=== PATIENT | female | born 1990 | race Caucasian/White ===

== ENCOUNTER 2018-01-23 08:50 | Emergency (ER) | payer OTHER ==
[~2018-01-23] VITALS: Ht 162.6 cm; Wt 88.0 kg
[~2018-01-23 08:50] MED LIST: ACET325 PO; ALBU90OI INH; ASPI325 PO; Bactrim Ds Tab1 EACH PO; CEPH500 PO; CLIN300 PO; COLD AND FLU; CYCL10 PO; Cleocin HCl150 MG PO; DOCU100 PO; DOXY100 PO; Diflucan150 MG PO; HYDACE5 PO; HYDACE5325 PO; IBUP400 PO; IBUP800 PO; MULVITMINE PO; Naprosyn500 MG PO; Norco 5-325 Ta1 EACH PO; OSEL75CA PO; PROCODE120 PO; Percocet 5-3251 EACH PO; SERT50 PO; Tylenol325 MG PO; Ultram50 MG PO; Veetids 500500 MG PO; Verotin-Gr Cap1 EACH PO; Zofran8 MG PO; subutex
[2018-01-23] MEDS ORDERED: PRENATA CHEWAB1 EACH PO (10:54)
== END 2018-01-23 12:41 | disposition home or self-care (01) ==
LOC: ER 08:50
DX: O26.892 Other specified pregnancy related conditions, second trimester (principal); R10.9 Unspecified abdominal pain; O99.332 Smoking (tobacco) complicating pregnancy, second trimester; F17.210 Nicotine dependence, cigarettes, uncomplicated; Z88.1 Allergy status to other antibiotic agents; Z88.8 Allergy status to other drugs, medicaments and biological substances; Z88.5 Allergy status to narcotic agent; Z79.899 Other long term (current) drug therapy; Z3A.27 27 weeks gestation of pregnancy
CPT/HCPCS: 76805; 99284-25

== ENCOUNTER → 2019-02-15 | Outpatient (CLI) | payer OTHER ==
[~2019-02-15] MED LIST changes: +PRENATA CHEWAB1 EACH PO
[2019-02-15 17:08] LABS: Source, Urine Clean Catch
[2019-02-15 18:22] LABS: Blood, Urine 1+ (Neg); Glucose Qualitative, Urine Neg (Neg); Ketones, Urine 1+ (Neg); Leukocyte Esterase, Urine 2+ (Neg); Nitrite, Urine Neg (Neg); Protein, Urine 2+ (Neg); Urobilinogen, Urine 2+ (Normal)
[2019-02-15 18:29] LABS: Bilirubin, Urine 1+ (Neg)
[2019-02-15 18:38] LABS: Appearance, Urine Turbid (Clear); Color, Urine Amber (P-Yellow)
[2019-02-15 18:40] LABS: Amorphous Mod (0-Heavy); Bacteria Many /hpf; Calcium Oxalate Crystals Many /hpf; Red Blood Cells, Urine 0-2 /hpf (0-2); Squamous Epithelial Cells Many /hpf (Few)
[2019-02-15 18:43] LABS: U Amphetamine Screen DETECTED; U Barbituate Screen Not Detected; U Benzodiazapine Screen Not Detected; U Buprenorphine Screen DETECTED; U Cocaine Screen Not Detected; U Methadone Screen Not Detected; U Methamphetamine Screen DETECTED; U Opiates Screen Not Detected
[2019-02-15 18:44] LABS: U Cannabinoids Screen Not Detected; U Oxycodone Screen Not Detected; U Phencyclidine Screen Not Detected; U Propoxyphene Screen Not Detected
== END | disposition home or self-care (01) ==
LOC: LAB SHORT 12:44 → LAB 12:44
PROVIDERS: Obstetrics & Gynecology
DX: Z34.83 Encounter for supervision of other normal pregnancy, third trimester (principal); F11.21 Opioid dependence, in remission
CPT/HCPCS: 81001; 87086

== ENCOUNTER → 2019-02-22 | Outpatient (CLI) | payer OTHER ==
[2019-02-22 17:10] LABS: Source, Urine Clean Catch
[2019-02-22 18:37] LABS: Bilirubin, Urine Neg (Neg); Blood, Urine Neg (Neg); Glucose Qualitative, Urine Neg (Neg); Ketones, Urine Neg (Neg); Leukocyte Esterase, Urine 1+ (Neg); Nitrite, Urine Neg (Neg); Protein, Urine Neg (Neg); Urobilinogen, Urine 3+ (Normal)
[2019-02-22 18:46] LABS: Appearance, Urine Clear (Clear); Color, Urine Yellow (P-Yellow)
[2019-02-22 18:47] LABS: Bacteria Mod /hpf; Calcium Oxalate Crystals Mod /hpf; Red Blood Cells, Urine 0-2 /hpf (0-2); Squamous Epithelial Cells Few /hpf (Few)
[2019-02-23 09:37] LABS: T. vaginalis (DNA Probe) Negative (NEGATIVE)
[2019-02-23 09:38] LABS: Candida species (DNA Probe) Negative (NEGATIVE); G. vaginalis (DNA Probe) Negative (NEGATIVE)
[2019-02-25 04:07] LABS: CHLAMYDIA TRACHOMATIS, NAA Negative (Negative); NEISSERIA GONORRHOEAE, NAA Negative (Negative)
== END | disposition home or self-care (01) ==
LOC: LAB 15:27 → LAB SHORT 15:27
PROVIDERS: Advanced Practice Midwife
DX: O23.599 Infection of other part of genital tract in pregnancy, unspecified trimester (principal)
CPT/HCPCS: 81001; 87086; 87480; 87491; 87510; 87591; 87660; G0123

== ENCOUNTER 2019-06-25 09:34 | Emergency (ER) | payer OTHER ==
[~2019-06-25] VITALS: Ht 170.2 cm; Wt 90.7 kg
[2019-06-25] MEDS ORDERED: MIRT30 PO (10:09)
[2019-06-25] MEDS ORDERED: Ultram50 MG PO (10:32)
[2019-06-25] MEDS ORDERED: Veetids 500500 MG PO (10:32)
== END 2019-06-25 10:43 | disposition home or self-care (01) ==
LOC: ER 09:34
DX: K04.7 Periapical abscess without sinus (principal); Z88.1 Allergy status to other antibiotic agents; Z88.8 Allergy status to other drugs, medicaments and biological substances; F17.210 Nicotine dependence, cigarettes, uncomplicated
CPT/HCPCS: 99283

== ENCOUNTER 2019-11-22 05:46 | Emergency (ER) | payer OTHER ==
[~2019-11-22] VITALS: Ht 170.2 cm; Wt 90.7 kg
[~2019-11-22 05:46] MED LIST changes: +MIRT30 PO
== END 2019-11-22 07:10 | disposition home or self-care (01) ==
LOC: ER 05:46
DX: S81.012A Laceration without foreign body, left knee, initial encounter (principal); S80.01XA Contusion of right knee, initial encounter; F17.210 Nicotine dependence, cigarettes, uncomplicated; Z23 Encounter for immunization; Z88.1 Allergy status to other antibiotic agents; Z88.8 Allergy status to other drugs, medicaments and biological substances; V89.2XXA Person injured in unspecified motor-vehicle accident, traffic, initial encounter
CPT/HCPCS: 12002; 73562-LT; 73562-RT; 90471; 90714; 99284-25

== ENCOUNTER 2020-09-30 17:29 | Emergency (ER) | payer OTHER ==
[~2020-09-30] VITALS: Ht 170.2 cm; Wt 86.2 kg
[~2020-09-30 17:29] MED LIST changes: +HYDR1TAB94 PO
[2020-09-30 17:56] LABS: Hematocrit 34.4 % (33.0-51.0); Mean Corpuscular HGB 26.4 pg (26.0-34.0); Mean Corpuscular Volume 83 fL (80-100); Platelet Count 448 K/mm3 (150-400); RDW Coefficient Variation 15.3 % (11.7-14.2); RDW Standard Deviation 46.5 fL (35.1-46.3); Red Blood Cell Count 4.16 M/mm3 (3.80-5.20); White Blood Cell Count 12.82 K/mm3 (4.00-11.30)
[2020-09-30 18:18] LABS: Alanine Aminotransfer (ALT/SGP 124 U/L (12-78); Albumin, Blood 3.4 g/dL (3.4-5.0); Albumin/Globulin Ratio 0.8 (0.8-1.8); Alk Phos 106 U/L (50-136); Anion Gap 7 mmol/L (6-16); Aspartate Aminotrans (AST/SGOT 202 U/L (12-37); Beta HCG, Quantitative, Serum <1 mIU/mL (0-3); Bilirubin, Total 0.2 mg/dL (0.1-1.0); Blood Urea Nitrogen 13 mg/dL (8-24); Bun/Creatinine Ratio 13.3 (12.0-20.0); CO2, Blood 22 mmol/L (21-32); Calcium, Blood 8.8 mg/dL (8.5-10.1); Chloride, Blood 112 mmol/L (98-108); Creatinine, Blood 0.98 mg/dL (0.40-1.00); Ethanol (Alcohol), Blood, Med <3 mg/dL; Glomerular Filtration Rate >60 (60-); Glucose, Blood 126 mg/dL (70-99); Potassium, Blood 3.9 mmol/L (3.5-5.5); Sodium, Blood 141 mmol/L (136-145); Total Protein, Blood 7.4 g/dL (6.4-8.2)
[2020-09-30 18:27] LABS: BASOPHILS PERCENT MAN 0 % (0-2); EOSINOPHILS ABSOLUTE MAN 0.25 K/mm3 (0.00-0.68); EOSINOPHILS PERCENT MAN 2 % (0-6); LYMPHOCYTES ABSOLUTE MAN 4.74 K/mm3 (0.84-5.20); LYMPHOCYTES PERCENT MAN 37 % (21-46); MONOCYTES ABSOLUTE MAN 1.02 K/mm3 (0.16-1.47); MONOCYTES PERCENT MAN 8 % (4-13); NEUTROPHILS ABSOLUTE MAN 6.79 K/mm3 (1.96-9.15); SEG NEUTROPHILS PERCENT MAN 53 % (41-73); TOTAL CELLS COUNTED 100
[2020-09-30 18:29] LABS: International Normalized Ratio 0.98; Prothrombin Time Results 10.5 Sec (9.7-11.5)
[2020-09-30 19:46] LABS: Source, Urine Clean Catch
[2020-09-30 19:58] LABS: Appearance, Urine Cloudy (Clear); Bilirubin, Urine Neg (Neg); Blood, Urine 5+ (Neg); Color, Urine Amber (P-Yellow); Glucose Qualitative, Urine Neg (Neg); Ketones, Urine Neg (Neg); Leukocyte Esterase, Urine 2+ (Neg); Nitrite, Urine Pos (Neg); Protein, Urine 3+ (Neg); Urobilinogen, Urine NORM (Normal)
[2020-09-30 20:12] LABS: Bacteria Many /hpf; Red Blood Cells, Urine TNTC /hpf (0-2); Squamous Epithelial Cells Few /hpf (Few); White Blood Cells, Urine 50-100 /hpf (0-5)
[2020-09-30 20:58] LABS: U Amphetamine Screen DETECTED; U Barbituate Screen Not Detected; U Benzodiazapine Screen Not Detected; U Buprenorphine Screen Not Detected; U Cannabinoids Screen Not Detected; U Cocaine Screen Not Detected; U Methadone Screen Not Detected; U Methamphetamine Screen DETECTED; U Opiates Screen Not Detected; U Oxycodone Screen Not Detected; U Phencyclidine Screen Not Detected; U Propoxyphene Screen Not Detected
== END 2020-09-30 20:04 | disposition short-term general hospital (02) ==
LOC: ER 17:29
PROVIDERS: Emergency Medicine
DX: S02.2XXA Fracture of nasal bones, initial encounter for closed fracture (principal); S37.032A Laceration of left kidney, unspecified degree, initial encounter; S36.031A Moderate laceration of spleen, initial encounter; Z88.1 Allergy status to other antibiotic agents; Z88.5 Allergy status to narcotic agent; Z87.891 Personal history of nicotine dependence; Z88.6 Allergy status to analgesic agent; Z88.8 Allergy status to other drugs, medicaments and biological substances; V49.50XA Passenger injured in collision with unspecified motor vehicles in traffic accident, initial encounter; Y92.410 Unspecified street and highway as the place of occurrence of the external cause
CPT/HCPCS: 25605; 51702; 70450; 70486; 71045; 71260; 72125; 73090; 73100; 74177; 76000; 80053; 81001; 83690; 84702; 85025; 85610; 87077; 87086; 87186; 96361-59; 96374-59; 96376-59; 99285-25; G0480; J3010; J7030; Q9967

== ENCOUNTER 2020-11-20 08:30 | Emergency (ER) | payer OTHER ==
[~2020-11-20] VITALS: Ht 170.2 cm; Wt 77.1 kg
[2020-11-20] MEDS ORDERED: Bactrim Ds Tab1 EACH PO (10:14)
[2020-11-20] MEDS ORDERED: CEPH500 PO (10:14)
== END 2020-11-20 11:35 | disposition home or self-care (01) ==
LOC: ER 08:30
DX: T81.41XA Infection following a procedure, superficial incisional surgical site, initial encounter (principal); L08.9 Local infection of the skin and subcutaneous tissue, unspecified; F17.210 Nicotine dependence, cigarettes, uncomplicated; Z88.1 Allergy status to other antibiotic agents; Z88.5 Allergy status to narcotic agent
CPT/HCPCS: 73564; 99283-25

== ENCOUNTER 2021-08-07 07:24 | Inpatient (IN) | payer OTHER ==
[~2021-08-07] VITALS: Ht 170.2 cm; Wt 88.5 kg
[2021-08-07 08:31] LABS: BASOPHILS ABSOLUTE AUTO 0.02 K/mm3 (0.00-0.23); BASOPHILS PERCENT AUTO 0 % (0-2); EOSINOPHILS ABSOLUTE AUTO 0.04 K/mm3 (0.00-0.68); EOSINOPHILS PERCENT AUTO 1 % (0-6); Hematocrit 40.3 % (33.0-51.0); Hemoglobin 13.6 g/dL (11.5-16.0); IMMATURE GRAN ABSOLUTE AUTO 0.03 K/mm3 (0.00-0.10); IMMATURE GRAN PERCENT AUTO 0 % (0-1); LYMPHOCYTES ABSOLUTE AUTO 1.36 K/mm3 (0.84-5.20); LYMPHOCYTES PERCENT AUTO 17 % (21-46); MONOCYTES ABSOLUTE AUTO 0.74 K/mm3 (0.16-1.47); MONOCYTES PERCENT AUTO 9 % (4-13); Mean Corpuscular HGB 28.3 pg (26.0-34.0); Mean Corpuscular HGB Conc 33.7 g/dL (31.5-36.5); Mean Corpuscular Volume 84 fL (80-100); NEUTROPHILS ABSOLUTE AUTO 5.97 K/mm3 (1.96-9.15); NEUTROPHILS PERCENT AUTO 73 % (41-73); Platelet Count 364 K/mm3 (150-400); RDW Coefficient Variation 13.5 % (11.7-14.2); RDW Standard Deviation 41.9 fL (35.1-46.3); White Blood Cell Count 8.16 K/mm3 (4.00-11.30)
[2021-08-07 08:37] LABS: Anion Gap 8 mmol/L (6-16); Blood Urea Nitrogen 9 mg/dL (8-24); Bun/Creatinine Ratio 11.8 (12.0-20.0); CO2, Blood 24 mmol/L (21-32); Calcium, Blood 8.6 mg/dL (8.5-10.1); Chloride, Blood 105 mmol/L (98-108); Creatinine, Blood 0.77 mg/dL (0.40-1.00); Glomerular Filtration Rate >60 (60-); Glucose, Blood 98 mg/dL (70-99); Potassium, Blood 3.6 mmol/L (3.5-5.5); Sodium, Blood 137 mmol/L (136-145)
[2021-08-07 08:52] LABS: International Normalized Ratio 0.95
--- NOTE | 2021-08-07 09:00 | NUR ---
Notified Dr Hammonds of Severe BP 218/127 amd then 204/131. New orders for IV Labetalol 20 mg IV Push. Repeat BP in 20 minutes, if BP remains >160/110 give 40 mg IV push. I inquired about Mag Sulfate administration. 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
[2021-08-07 10:21] LABS: Albumin, Blood 3.1 g/dL (3.4-5.0); Albumin/Globulin Ratio 0.7 (0.8-1.8); Bilirubin, Direct 0.1 mg/dL (0.0-0.3); Bilirubin, Indirect 0.4 mg/dL (0.1-0.7); Bilirubin, Total 0.5 mg/dL (0.1-1.0); Globulin, Blood 4.5 g/dL (2.2-4.0); Total Protein, Blood 7.6 g/dL (6.4-8.2)
[2021-08-07 10:37] LABS: Adenovirus Not Detected (NOT DETECT); Bordetella pertussis Not Detected (NOT DETECT); Chlamydophila pneumoniae Not Detected (NOT DETECT); Coronavirus 229E Not Detected (NOT DETECT); Coronavirus HKU1 Not Detected (NOT DETECT); Coronavirus NL63 Not Detected (NOT DETECT); Coronavirus OC43 Not Detected (NOT DETECT); Human Metapneumovirus Not Detected (NOT DETECT); Human Rhinovirus/Enterovirus Not Detected (NOT DETECT); Influenza A/2009-H1 Not Detected (NOT DETECT); Influenza A/H1 Not Detected (NOT DETECT); Influenza A/H3 Not Detected (NOT DETECT); Influenza B Not Detected (NOT DETECT); Mycoplasma pneumoniae Not Detected (NOT DETECT); Parainfluenza Virus 1 Not Detected (NOT DETECT); Parainfluenza Virus 2 Not Detected (NOT DETECT); Parainfluenza Virus 3 Not Detected (NOT DETECT); Parainfluenza Virus 4 Not Detected (NOT DETECT); Respiratory Syncytial Virus Not Detected (NOT DETECT); SARS-Cov-2 (COVID-19), BioFire Not Detected (NOT DETECT)
--- NOTE | 2021-08-07 12:05 | NUR ---
PT REQUESTING TO GO HOME. DR SHABAZZ PAGED.
[2021-08-07 12:18] LABS: Source, Urine Clean Catch
--- NOTE | 2021-08-07 12:19 | NUR ---
DR SHABAZZ RETURNED PHONE CALL, NOTIFIED OF PTS REQUEST TO DC HOME. DR SHABAZZ WOULD LIKE PT TO STAY AT LEAST UNTIL 1430 LONG HER BLOOD PRESSURE IS <160/110 OR PT WOULD HAVE TO SIGN AMA FORM. PT NOTIFIED OF THIS AND AGREEABLE TO STAY AT THIS TIME. SHE ALSO AGREED TO SCHEDULING AN APPT WITH DR SHABAZZ WITHIN 2 WEEKS AND WAS DISCUSSING ABOUT A TUBAL LIGATION REQUEST.
[2021-08-07 12:22] LABS: Appearance, Urine Cloudy (Clear); Bilirubin, Urine Neg (Neg); Blood, Urine 5+ (Neg); Color, Urine Yellow (P-Yellow); Glucose Qualitative, Urine Neg (Neg); Ketones, Urine 2+ (Neg); Leukocyte Esterase, Urine 1+ (Neg); Nitrite, Urine Neg (Neg); Protein, Urine 3+ (Neg); Specific Gravity, Urine 1.015 (1.003-1.022); Urobilinogen, Urine NORM (Normal); pH, Urine 6.5 (5.0-8.0)
[2021-08-07 12:41] LABS: U Amphetamine Screen DETECTED; U Barbituate Screen Not Detected; U Benzodiazapine Screen Not Detected; U Cocaine Screen Not Detected; U Methadone Screen Not Detected; U Methamphetamine Screen DETECTED
[2021-08-07 12:42] LABS: U Buprenorphine Screen Not Detected; U Cannabinoids Screen Not Detected; U Opiates Screen Not Detected; U Oxycodone Screen Not Detected; U Phencyclidine Screen Not Detected; U Propoxyphene Screen Not Detected
[2021-08-07 12:52] LABS: Red Blood Cells, Urine TNTC /hpf (0-2)
[2021-08-07 12:56] LABS: Squamous Epithelial Cells Few /hpf (Few)
--- NOTE | 2021-08-07 12:56 | NUR ---
follow up and BP check scheduled for Wednesday at 1100 with VIOLA Templeton. Pt also has an appt for control/possible tubal ligation inquiry with Dr Hammonds on 08/20/21 @ 4:40 pm. Appts written down on DC paperwork. Report to Courtney Holland RN.
[2021-08-07 12:57] LABS: Bacteria Many /hpf; Hyaline Casts 0-2 /lpf (0-2)
--- NOTE | 2021-08-07 14:57 | NUR ---
[id number] dischage instructions reviewed with and copy given to patient. discharged to home. escorted to [facility] via w/c. iv dc'd cath intact site ok
== END 2021-08-07 14:45 | disposition home or self-care (01) | DRG 806 ==
LOC: OBS 07:24 → ER 07:24 → EDSTATUS 08:14 → BC 08:25
PROVIDERS: Student in an Organized Health Care Education/Training Program; ADMIT Obstetrics & Gynecology
PROC: 10E0XZZ Delivery of Products of Conception, External Approach (ICD-10-PCS; principal; 2021-08-07)
DX: O02.1 Missed abortion (principal); O99.322 Drug use complicating pregnancy, second trimester; Z37.1 Single stillbirth; Z3A.17 17 weeks gestation of pregnancy; Z20.822 Contact with and (suspected) exposure to COVID-19; F19.90 Other psychoactive substance use, unspecified, uncomplicated; F15.90 Other stimulant use, unspecified, uncomplicated; F11.90 Opioid use, unspecified, uncomplicated; Z90.89 Acquired absence of other organs; Z87.891 Personal history of nicotine dependence; Z88.1 Allergy status to other antibiotic agents; Z88.6 Allergy status to analgesic agent; Z88.8 Allergy status to other drugs, medicaments and biological substances; Z79.899 Other long term (current) drug therapy
CPT/HCPCS: 0202U; 36415; 80048; 80076; 81001; 85025; 85610; 85730; 86850; 86900; 86901; 87077; 87086; 87186; 88305; A9270; J2590

== ENCOUNTER 2022-11-02 03:41 | Inpatient (IN) | payer OTHER ==
[2022-11-02] VITALS (49 sets, daily range): BP systolic 89–215; BP diastolic 50–132
[~2022-11-02] VITALS: Ht 170.2 cm; Wt 86.2 kg
[2022-11-02 04:10] LABS: BASOPHILS ABSOLUTE AUTO 0.02 K/mm3 (0.00-0.23); BASOPHILS PERCENT AUTO 0 % (0-2); EOSINOPHILS ABSOLUTE AUTO 0.01 K/mm3 (0.00-0.68); EOSINOPHILS PERCENT AUTO 0 % (0-6); Hematocrit 32.9 % (33.0-51.0); Hemoglobin 10.8 g/dL (11.5-16.0); IMMATURE GRAN ABSOLUTE AUTO 0.02 K/mm3 (0.00-0.10); IMMATURE GRAN PERCENT AUTO 0 % (0-1); LYMPHOCYTES ABSOLUTE AUTO 2.06 K/mm3 (0.84-5.20); LYMPHOCYTES PERCENT AUTO 25 % (21-46); MONOCYTES ABSOLUTE AUTO 0.73 K/mm3 (0.16-1.47); MONOCYTES PERCENT AUTO 9 % (4-13); Mean Corpuscular HGB 27.5 pg (26.0-34.0); Mean Corpuscular HGB Conc 32.8 g/dL (31.5-36.5); Mean Corpuscular Volume 84 fL (80-100); Mean Platelet Volume 11.2 fL (9.1-12.4); NEUTROPHILS ABSOLUTE AUTO 5.44 K/mm3 (1.96-9.15); NEUTROPHILS PERCENT AUTO 66 % (41-73); Platelet Count 304 K/mm3 (150-400); RDW Coefficient Variation 14.4 % (11.7-14.2); RDW Standard Deviation 43.8 fL (35.1-46.3); Red Blood Cell Count 3.93 M/mm3 (3.80-5.20); White Blood Cell Count 8.28 K/mm3 (4.00-11.30)
[2022-11-02 04:54] LABS: Albumin, Blood 2.3 g/dL (3.4-5.0); Albumin/Globulin Ratio 0.5 (0.8-1.8); Bilirubin, Total 0.4 mg/dL (0.1-1.0); Bun/Creatinine Ratio 13.6 (12.0-20.0); Calcium, Blood 8.1 mg/dL (8.5-10.1); Creatinine, Blood 1.1 mg/dL (0.40-1.00); Globulin, Blood 4.4 g/dL (2.2-4.0); Potassium, Blood 4.2 mmol/L (3.5-5.5); Total Protein, Blood 6.7 g/dL (6.4-8.2)
[2022-11-02 06:07] LABS: International Normalized Ratio 0.89; Prothrombin Time Results 9.4 Sec (9.7-11.5)
[2022-11-02 06:16] LABS: U Amphetamine Screen DETECTED; U Barbituate Screen Not Detected; U Benzodiazapine Screen Not Detected; U Buprenorphine Screen Not Detected; U Cannabinoids Screen Not Detected; U Cocaine Screen Not Detected; U Methadone Screen Not Detected; U Methamphetamine Screen DETECTED; U Opiates Screen Not Detected; U Oxycodone Screen Not Detected; U Phencyclidine Screen Not Detected; U Propoxyphene Screen Not Detected
--- NOTE | 2022-11-02 11:40 | NUR ---
1035: SECOND HIGH B/P NOTED. Jeremy BURGOS CNM, UPDATED. ORDER RECEIVED TO GIVE 20 PO OF NIFEDIPINE. REPEAT IN 20 MIN IF BLOOD PRESSURE STILL ELEVATED. PT SLEEPING BUT AWAKENS WHEN ASKED AND FOLLOWS COMMANDS. 1102: ANOTHER ELEVATED B/P NOTED. Jeremy BURGOS CNM UPDATED AND PT GIVEN ANOTHER DOSE OF 20 PO NIFEDIPINE AND HER SCHEDULED DOSE OF LABETALOL. PT REMAINS SLEEPING, AROUSES AND RESPONDS TO COMMANDS.
--- NOTE | 2022-11-02 12:37 | NUR ---
UPDATE TO Jeremy BURGOS CNM. PT AWAKEN FOR LUNCH. SITS UP AND EATS LUNCH.
--- NOTE | 2022-11-02 13:32 | NUR ---
DISCUSSED WITH PT THAT [facility] WAS GOING TO BE CALLED AND NOTIFIED OF . PT AGREES AND NON ARGUEMENTIVE. PT REPORTS FOB IS [facility]. 11/04 OF EITHER 1980 OR 1981 SHE THINKS. REPROTS THEY HAVE A 2 YEAR OLD DAUGHTER TOGETHER THAT IS IN THE [facility]. [facility] CALLED AND SPOKE WITH BETTINA BEEBE.
--- NOTE | 2022-11-02 14:11 | NUR ---
PT ARRIVED AT THE [facility] WITH AN IV IN HER LEFT AC. THAT IV WAS DC BY RN AT 1245.
--- NOTE | 2022-11-02 14:43 | NUR ---
1330: WHEN REASSESSING PAIN, PT FOUND SLEEPING SOUNDLY. PT AWAKENS QUICKLY TO COMMAND, REPORTS HER PAIN IS THE SAME AND THEN PROMPTLY FALLS BACK ASLEEP. EASILY AROUSABLE AGAIN BUT THEN R/T SLEEP AFTER TAKING A COUPLE BITES OF CRACKERS.
--- NOTE | 2022-11-02 14:58 | NUR ---
1445: [place] FROM [facility] CALLED AND REPORTS SHE WILL BE OVER TO SEE PT WITHIN THE HOUR
--- NOTE | 2022-11-02 16:22 | NUR ---
PT REQUESTS NB TO ROOM. PT AWAKE AND ALERT, ASKING FOR MORE FOOD. PT UP TO BRP WITH STANDBY ASSIST. PT HOLDS NB FOR ABOUT 5 MIN, UNWRAPS NB AND LAYS NB OUT ON THE EDGE OF THE BED. RN TO REMAINS AT BEDSIDE. INSTRUCTED TO KEEP NB WRAPPED UP BUT PT REPORTS NB IS STUFFY SHE IS AND NEEDS TO BE UNWRAPPED. NB HUNGRY, PT ASKS RN TO FEED NB. PT TRIED TO CALL FAMILY MEMBERS AND REQUEST RN HOLD NB FOR HER. PT APPARENTLY REACHED HER DAD FOR A VERY SHORT CONVERSATIONS WHERE SHE INFORMED HIM SHE HAD A BABY BOY. PT REPORTS SHE HAS NO WHERE TO LIVE. SHE SLEEPS ON PEOPLE'S COUCHES. NOT TOGETHER WITH LACEY, THE SUPPOSED FOB, SHE SAID HE LEFT HER FOR SOMEONE ELSE.
--- NOTE | 2022-11-02 16:39 | NUR ---
[place] FROM [facility] HERE TO SEE PT. THEY WENT IN ROOM TO TALK WITH PT BUT PT KEPT FALLING ASLEEP AND TRIED ANSWERING QUESTIONS BUT UNABLE TO KEEP EYES OPEN. THEY PLAN TO R/T IN THE MORNING AFTER SHE GETS SOME MORE SLEEP.
[2022-11-03] VITALS (29 sets, daily range): BP systolic 101–192; BP diastolic 53–109
--- NOTE | 2022-11-03 00:39 | NUR ---
PT REQUESTING NB TO BE IN ROOM WITH HER WHEN SHE WAKES UP AND IS ALERT. RN EDUCATED PT THAT IT IS UNSAFE FOR THE NB DUE TO HER NOT BEING ABLE TO STAY AWAKE FOR MORE THAN 5-10 MINUTES AT A TIME. RN INFORMED PT THAT THE NB IS VERY FUSSY AND IS WITHDRAWING. PT DID NOT SAY ANYTHING OR ASK ANY QUESTIONS. PT REQUESTING OXYCODONE FOR PAIN. RN TOLD PT THAT SHE IS RECIEIVNG MOTRIN/TYLENOL/TRAMADOL ON A REGULAR SCHEDULE. RN EDUCATED PT THAT SHE IS EXPERINCING NORMAL CRAMPING/UNCOMFORTABLENESS. PT STATES "I MAY NEED TO CHECK MYSELF OUT AND GET PAIN PILLS UP STAIRS." CALL LIGHT AT BEDSIDE.
[2022-11-03 05:35] LABS: Hematocrit 31.3 % (33.0-51.0); Hemoglobin 10.5 g/dL (11.5-16.0); Mean Corpuscular HGB 27.3 pg (26.0-34.0); Mean Corpuscular HGB Conc 33.5 g/dL (31.5-36.5); Mean Corpuscular Volume 81 fL (80-100); Platelet Count 298 K/mm3 (150-400); RDW Coefficient Variation 14.6 % (11.7-14.2); RDW Standard Deviation 42.5 fL (35.1-46.3); Red Blood Cell Count 3.85 M/mm3 (3.80-5.20); White Blood Cell Count 8.52 K/mm3 (4.00-11.30)
[2022-11-03 07:09] LABS: HBSAG SCREEN Negative (Negative)
[2022-11-03 08:09] LABS: HIV AB/P24 AG SCREEN Non Reactive (Non Reactive)
--- NOTE | 2022-11-03 08:23 | NUR ---
INTO ROOM AT 0800 ASSUMED CARE PATIENT ASLEEP B/P CUFF THROWN ON THE FLOOR WITH THE BIOX AND BLOODY PAD ON THE FLOOR AND ON BEDSIDE TABLE, PATIENT STATES PAIN 10 FROM WITHDRAWLS, MEDICATION GIVEN, PULLED BACK BLANCKET AND IV TUBING FULL OF BLOOD AND BLOOD COVERING GOWN AND AMAYA WHERE SHE WAS NOT WEARING A PAD, HAD DISCONECTED BOTH OF HER IVs, BABY IS IN NURSERY WITH STAFF THROUGH OUT NIGHT, PATIENT JUMPS OUT OF BED, STATES SHE IS IN PAIN ALL OVER SHE STATES IS WITHDRAWLING FROM FENTANLY AND METH, PUT PATIENT IN SHOWER BECAUSE COVERED IN BLOOD THEN WILL RECONNECT MAGNESIUM, POOR HISTORIAN DIFFICULT TO GET ANSWERS OUT OF
--- NOTE | 2022-11-03 08:29 | NUR ---
IN TUB SITTING ON FLOOR OF TUB WITH WATER WILL NOT GET OUT AT THIS TIME
--- NOTE | 2022-11-03 08:45 | NUR ---
PATIENT INSTRUCTED TO GET OUT OF SHOWER BUT CONTINUES TO SIT ON FLOOR OF TUB AND HAS FILLED WITH BUBBLES AFTER TEN MINUTES WAS ABLE TO SHOWER ALL BUBBLES OFF AND GET BACK INTO BED, STATES PAIN ALL OVER WITH HEADACHE, ANA AT BEDSIDE, MAGNESIUM RESTARTED MY D/C IN 1 HOUR
--- NOTE | 2022-11-03 09:45 | NUR ---
IV D/C IN LEFT WRIST, MAGNESIUM AND LR OFF AT 0948, PATIENT ASLEEP
--- NOTE | 2022-11-03 11:01 | NUR ---
report to bebe ROD
--- NOTE | 2022-11-03 13:04 | NUR ---
WOUND CARE NURSE AT BEDSIDE CARING FOR RIGHT LEG WOUND.
--- NOTE | 2022-11-03 13:10 | NUR ---
PT UP IN BATHROOM, LARGE AMOUNT OF DIARRHEA. MICHELLE PEREZ CALLED AND NOTIFIED. IMMODIUM ORDERED.
--- NOTE | 2022-11-03 18:58 | NUR ---
PT CONTINUES TO COME AND GO FROM HER ROOM, TO OUTSIDE, TO CAFETERIA, AND NURSERY. HER FAMILY IS WORRIED ABOUT HER LEAVING AMA, BUT PT CONTINUES TO COME BACK TO [facility]. SALINE LOCK HAS TAMPER PROOF MATERIAL ON; HAS BEEN IN PLACE R/T HIGH BP.
--- NOTE | 2022-11-03 21:04 | NUR ---
PATIENT BEING NON COMPLIANT WITH STAYING IN BED FOR BLOOD PRESSURE MONITORING, ALONG WITH STAYING IN CORRECT POSITIONING FOR BLOOD PRESSURE CHECKS WELL. SUZETTE WEAVER
[2022-11-04] VITALS (10 sets, daily range): BP systolic 105–186; BP diastolic 52–95
--- NOTE | 2022-11-04 13:40 | NUR ---
DRUG PARAPHERNALIA FOUND IN MOTHERS ROOM -AT 1100 PT STATES SHE WAS GOING TO THE [employer] [facility] TO GET A DRINK. AT THAT TIME PT WAS TALKING AND WALKING NORMAL -AT 1200 PT BACK ON UNIT AND WANT STRAIGHT TO THE BATHROOM. DOOR WAS WIDE OPEN AND VIOLA VOGEL SAW HER DROP A BLUE AND WHITE STRAW ONTO THE FLOOR AND PT HURRIED UP AND PUT IT IN HER BAG AND SHUT THE BATHROOM DOOR AND LOCKED IT. -1215 LELA RN AT DOOR TO GET PT VITALS AND PT SAID JUST A SECOND SHE WAS STILL IN BATHROOM. -1230 PT IS STILL IN THE BATHROOM. RN KNOCKED ON DOOR AND PT STATES JUST A SECOND AGAIN. MULTIPLE ATTEMPTS TO GET PT TO OPEN BATHROOM AND PT RESPONDING LESS AND LESS. ALY IN HOUSE AT THIS TIME AND TOLD HER POSSIBLE DRUG USE IN BATHROOM. -1240 FINALLY AFTER KNOCKING HARD AND STATING WE NEEDED TO COME IN SHE UNLOCKED THE BATHROOM DOOR. SHE WAS PASSED OUT ON THE TOILET AND WITH PANTS DOWN. RN HELPED CLEAN PT UP AND GOT HER TO WALK TO HER BED. AT THIS TIME PT IS VERY OUT OF IT AND UNABLE TO STAY AWAKE. BIOX AND BP ON. -1243 TAPER AND FLOATER [place] CALLED AND LEFT MESSAGE ON PHONE TO CALL BACK -1254 CHILD MACHINE STAMPER KATRIN CALLED AND UPDATE ON SITUATION AND HOW PT IS NOW ALMOST UNRESPONSIVE. SHE IS GOING TO CALL THEIR ART TEAM RIGHT NOW TO SEE IF THERE IS AN INPATIENT TREATMENT SHE CAN GO TO RIGHT NOW. IF NOT PT NEEDS TO BE TRANSFERRED TO A DIFFERENT FLOOR FOR MONITORING. KARLI WALL AND FLOOR TILER OF [facility] UPDATED ON SITUATION AND MIRZA SUPPLY CHAIN TECH. -1255 WHILE CLEANING UP BATHROOM A PLASTIC BAGGY WAS FOUND WITH BURNT OR BLACK SUBSTANCE ON FOIL. PT STARTING TO RESPOND NOW AND STATES THAT HAS BEEN IN HER BAG BEFORE SHE EVEN GOT TO THE HOSPITAL. SECURITY CALLED TO COME DOWN. -1300 PT GRABBED 1 OF HER BAGS AND LEFT UNIT. KATRIN FROM [facility] CALLED AND UPDATED AND NOT SURE IF PT LEFT AMA OR NOT. THEY WILL BE HERE SOON TO EVALUATE. THERE ARE NOT ANY INPATIENT TREATMENT BEDS AVAILABLE UNTIL WEDNESDAY AT THE EARLIEST. ALY REMANS IN HOUSE AND AWARE PT LEFT UNIT. WILL CALL IF SHE COMES BACK. ALL WITNESSED BY ALICJA ROD AND ARVIND ROD
--- NOTE | 2022-11-04 14:31 | NUR ---
THIS RN NOTIFIED BY KARLI, [facility] GRADUATE ENGINEER, THAT PT WAS FOUND ON HOSPITAL GROUNDS BY SECURITY NEARLY PASSED OUT. PT WAS FOUND WITH VISIBLE DRUGS IN ADDITION TO WHAT WAS FOUND EARLIER. SECURITY TOOK THE PARAPHERNELIA IN THEIR POSSESSION TO DESTROY. PT WAS THEN SEEN WALKING TO [facility] BY SECURITY AND IS OFF HOSPITAL GROUNDS. AMA FORM FILLED OUT BY THIS RN AND ESTEFANÍA ROD. PT BELONGINGS BAGGED UP AND WILL BE GIVEN TO [facility].
[2022-11-08 16:09] LABS: HCV AB Reactive (Non Reactive); HCV LOG10 5.952 (.); HEPATITIS C QUANTITATION 895000 IU/mL (.)
== END 2022-11-04 14:00 | disposition home or self-care (01) | DRG 806 ==
LOC: ER 03:41 → BC 04:19
PROVIDERS: Emergency Medicine; ADMIT Advanced Practice Midwife
PROC: 10E0XZZ Delivery of Products of Conception, External Approach (ICD-10-PCS; principal; 2022-11-02)
PROC: 3E0R3BZ Introduction of Anesthetic Agent into Spinal Canal, Percutaneous Approach (ICD-10-PCS; 2022-11-02)
PROC: 00HU33Z Insertion of Infusion Device into Spinal Canal, Percutaneous Approach (ICD-10-PCS; 2022-11-02)
PROC: 10907ZC Drainage of Amniotic Fluid, Therapeutic from Products of Conception, Via Natural or Artificial Opening (ICD-10-PCS; 2022-11-02)
DX: O34.211 Maternal care for low transverse scar from previous cesarean delivery (principal); O72.1 Other immediate postpartum hemorrhage; Z37.0 Single live birth; O99.324 Drug use complicating childbirth; Z3A.36 36 weeks gestation of pregnancy; O14.14 Severe pre-eclampsia complicating childbirth; F15.10 Other stimulant abuse, uncomplicated; O99.334 Smoking (tobacco) complicating childbirth; F17.210 Nicotine dependence, cigarettes, uncomplicated; O99.344 Other mental disorders complicating childbirth; F32.A Depression, unspecified; F41.9 Anxiety disorder, unspecified; Z98.890 Other specified postprocedural states; Z88.8 Allergy status to other drugs, medicaments and biological substances; Z88.1 Allergy status to other antibiotic agents; Z79.899 Other long term (current) drug therapy; Z86.14 Personal history of Methicillin resistant Staphylococcus aureus infection; Z86.19 Personal history of other infectious and parasitic diseases
CPT/HCPCS: 36415; 51702; 76816; 80053; 83615; 84702; 85025; 85027; 85384; 85610; 85730; 86317; 86592; 86762; 86850; 86870; 86900; 86901; 87081; 87150; 87340; 87389; 93005; 93010; 96374; 99285-25; A9270; J0290; J1050; J2590; J3010; J3475; J7120